=== PATIENT | female | born 1970 | race Two or more races ===

== ENCOUNTER 2018-11-21 12:00 | Emergency (ER) | payer OTHER ==
[~2018-11-21] VITALS: Ht 162.6 cm; Wt 86.2 kg
[~2018-11-21 12:00] MED LIST: INTESTINEX1 CA1 PO; OMEPRAZOLE20 MG PO; ULTRAM50 MG PO; ZANTAC300 MG PO
[2018-11-21] MEDS ORDERED: WELLBUTRIN SR200 MG (12:21)
[2018-11-21] MEDS ORDERED: ADIPEX-P37.5 MG (12:22)
== END 2018-11-21 18:51 | disposition home or self-care (01) ==
LOC: ER 12:00
DX: R10.13 Epigastric pain (principal); M54.89 Other dorsalgia

== ENCOUNTER 2020-04-02 15:52 | Outpatient (CLI) | payer OTHER ==
[~2020-04-02 15:52] MED LIST changes: +ADIPEX-P37.5 MG; +WELLBUTRIN SR200 MG
== END 2020-04-02 16:32 | disposition home or self-care (01) ==
LOC: RAD 15:52
PROVIDERS: ATTEND Physical Medicine & Rehabilitation
DX: M75.32 Calcific tendinitis of left shoulder (principal); S80.02XA Contusion of left knee, initial encounter; M25.562 Pain in left knee; M25.561 Pain in right knee

== ENCOUNTER 2022-02-02 11:16 | Outpatient (CLI) | payer OTHER | END 2022-02-02 11:26 | disposition home or self-care (01) | LOC: RAD 11:16 | DX: J18.9 Pneumonia, unspecified organism (principal); J01.90 Acute sinusitis, unspecified ==

== ENCOUNTER 2022-03-01 13:30 | Outpatient (CLI) | payer OTHER | END 2022-03-01 13:31 | disposition home or self-care (01) | LOC: RAD 13:30 | PROVIDERS: ATTEND Physical Medicine & Rehabilitation | DX: M54.2 Cervicalgia (principal) ==